=== PATIENT | male | born 1930 | race Caucasian/White ===

== ENCOUNTER → 2016-08-31 | Outpatient (CLI) | payer MEDICARE ==
[2016-08-31 13:12] LABS: HEMATOCRIT 39.1 % (37.9-51.0); HGB HCT DIFFERENCE -0.1; MEAN CORPUSCULAR HEMOGLOBIN 28.3 pg (27.0-33.4); MEAN CORPUSCULAR HGB CONC 33.3 g/dL (32.0-36.0); MEAN CORPUSCULAR VOLUME 85 fl (80-97)
[2016-08-31 13:25] LABS: ANION GAP 12 (5-19); BLOOD UREA NITROGEN 36 mg/dL (7-20); CALCIUM 10.3 mg/dL (8.4-10.2); CARBON DIOXIDE 24 mmol/L (22-30); CHLORIDE 105 mmol/L (98-107); CREATININE RESULT 1.75 mg/dL (0.52-1.25); GLUCOSE 78 mg/dL (75-110); POTASSIUM 4.7 mmol/L (3.6-5.0); SODIUM 141.4 mmol/L (137-145)
== END ==
LOC: OD 11:39
PROVIDERS: ATTEND Internal Medicine Cardiovascular Disease
DX: Z79.899 Other long term (current) drug therapy (principal); R06.02 Shortness of breath
CPT/HCPCS: 36415; 80048; 83735; 83880; 85027

== ENCOUNTER → 2016-09-09 | Outpatient (CLI) | payer MEDICARE ==
[2016-09-09 12:28] LABS: ABSOLUTE EOSINOPHILS # (AUTO) 0.3 10^3/uL (0.0-0.6); ABSOLUTE MONOCYTES (AUTO) 0.7 10^3/uL (0.1-1.4); ABSOLUTE NEUT (AUTO) 4.3 10^3/uL (1.7-8.2); BASOPHILS % (AUTO) 0.2 % (0-2); EOSINOPHILS % (AUTO) 3.5 % (0-6); HEMATOCRIT 36.9 % (37.9-51.0); HEMOGLOBIN 12.6 g/dL (13.5-17.0); HGB HCT DIFFERENCE 0.9; LYMPHOCYTES % (AUTO) 27.5 % (13-45); MEAN CORPUSCULAR HEMOGLOBIN 28.9 pg (27.0-33.4); MEAN CORPUSCULAR HGB CONC 34.1 g/dL (32.0-36.0); MEAN CORPUSCULAR VOLUME 85 fl (80-97); MONOCYTES % (AUTO) 9.5 % (3-13); RED BLOOD COUNT 4.35 10^6/uL (4.35-5.55); RED CELL DISTRIBUTION WIDTH 16.4 % (11.5-14.0); SEGMENTED NEUTROPHILS % (AUTO) 59.3 % (42-78); WHITE BLOOD COUNT 7.3 10^3/uL (4.0-10.5)
[2016-09-09 12:55] LABS: ANION GAP 14 (5-19); BLOOD UREA NITROGEN 34 mg/dL (7-20); CALCIUM 9.9 mg/dL (8.4-10.2); CARBON DIOXIDE 22 mmol/L (22-30); CHLORIDE 104 mmol/L (98-107); CREATININE RESULT 1.89 mg/dL (0.52-1.25); GLUCOSE 77 mg/dL (75-110); POTASSIUM 4.8 mmol/L (3.6-5.0); SODIUM 140.2 mmol/L (137-145)
[2016-09-09 14:08] LABS: APPEARANCE,URINE CLEAR; BILIRUBIN,URINE NEGATIVE (NEGATIVE); GLUCOSE, URINE NEGATIVE (NEGATIVE); KETONES,URINE NEGATIVE (NEGATIVE); LEUKOCYTE ESTERASE,URINE NEGATIVE (NEGATIVE); NITRITE,URINE NEGATIVE (NEGATIVE); PROTEIN,URINE 30 mg/dL (NEGATIVE); URINE SPECIFIC GRAVITY 1.014; UROBILINOGEN,URINE NEGATIVE mg/dL (<2.0)
[2016-09-10 11:40] LABS: CREATININE URINE 152.4 mg/dL (Not Estab.); MICROALBUMIN URINE 99.4 ug/mL (Not Estab.)
== END ==
LOC: OD 11:16
PROVIDERS: ATTEND Internal Medicine Nephrology
DX: N18.3 Chronic kidney disease, stage 3 (moderate) (principal); D63.1 Anemia in chronic kidney disease
CPT/HCPCS: 36415; 80048; 81001; 82043; 82306; 82570; 85025

== ENCOUNTER → 2016-10-20 | Outpatient (CLI) | payer MEDICARE ==
[2016-10-20 14:44] LABS: ANION GAP 12 (5-19); BLOOD UREA NITROGEN 55 mg/dL (7-20); CALCIUM 11.3 mg/dL (8.4-10.2); CARBON DIOXIDE 19 mmol/L (22-30); CHLORIDE 107 mmol/L (98-107); CREATININE RESULT 2.18 mg/dL (0.52-1.25); GLUCOSE 74 mg/dL (75-110); POTASSIUM 5.5 mmol/L (3.6-5.0); SODIUM 137.8 mmol/L (137-145)
== END ==
LOC: OD 12:57
PROVIDERS: ATTEND Internal Medicine Cardiovascular Disease
DX: R06.02 Shortness of breath (principal); E87.5 Hyperkalemia
CPT/HCPCS: 36415; 80048; 83880

== ENCOUNTER → 2016-11-08 | Outpatient (CLI) | payer MEDICARE ==
[2016-11-08 17:05] LABS: ANION GAP 14 (5-19); BLOOD UREA NITROGEN 33 mg/dL (7-20); CALCIUM 10.5 mg/dL (8.4-10.2); CARBON DIOXIDE 25 mmol/L (22-30); CHLORIDE 101 mmol/L (98-107); CREATININE RESULT 2.03 mg/dL (0.52-1.25); GLUCOSE 78 mg/dL (75-110); POTASSIUM 4.7 mmol/L (3.6-5.0); SODIUM 140.1 mmol/L (137-145)
== END ==
LOC: OD 14:21
PROVIDERS: ATTEND Internal Medicine Cardiovascular Disease
DX: E78.5 Hyperlipidemia, unspecified (principal)
CPT/HCPCS: 36415; 80048

== ENCOUNTER 2016-12-10 11:46 | Emergency (ER) | payer MEDICARE ==
--- NOTE | 2016-12-10 12:25 | ER Document Report ---
ED Medical Screen (RME) - General Chief Complaint: Breathing Difficulty Stated Complaint: EDEMA ON FEET/ANKLES,SHORT OF BREATH Notes: Patient presents with 3 weeks of progressively worsening shortness of breath and a 7 pound weight gain in the setting of known systolic heart failure. He does also have a history of COPD. He currently takes furosemide 20 mg daily and has not had any dosing adjustment due to a concern of his history of chronic kidney disease stage III. He was instructed to come to the emergency department today by his primary care physician. Denies any shortness of breath the time my assessment states however when he gets up and performs any degree of exertion he becomes extremely short of breath more rapidly than normal. He states this has been getting progressively worse for at least the past 2-3 months. He denies any chest pain, vomiting, or syncope. I have greeted and performed a rapid initial assessment of this patient. A comprehensive ED assessment and evaluation of the patient, analysis of test results and completion of medical decision making process will be conducted by an additional ED providers. TRAVEL OUTSIDE OF THE [place] IN LAST 30 DAYS: No - Related Data Allergies/Adverse Reactions: clindamycin [Clindamycin] Allergy (Severe, Verified 05/28/16 13:24) Renal failure gentamicin [Gentamicin] Allergy (Severe, Verified 05/28/16 13:24) Renal failure fluticasone propionate [From Advair Diskus] Allergy (Verified 05/28/16 13:24) salmeterol xinafoate [From Advair Diskus] Allergy (Verified 05/28/16 13:24) Past Medical History - Social History Chew tobacco use (# tins/day): No Frequency of alcohol use: None Drug Abuse: None - Past Medical History Cardiac Medical History: Reports: Hx Atrial Fibrillation, Hx Congestive Heart Failure, Hx Coronary Artery Disease, Hx Heart Attack, Hx Hypercholesterolemia, Hx Hypertension, Hx Heart Murmur - Moderate aortic stenosis Pulmonary Medical History: Reports: Hx COPD, Hx Pneumonia Denies: Hx Asthma, Hx Tuberculosis Neurological Medical History: Reports: Hx Cerebrovascular Accident. Denies: Hx Seizures Endocrine Medical History: Reports: Hx Hypothyroidism Renal/ Medical History: Reports: Hx End Stage Renal Disease - III. Denies: Hx Peritoneal Dialysis GI Medical History: Reports: Hx Diverticulitis. Denies: Hx Hepatitis, Hx Hiatal Hernia, Hx Ulcer Psychiatric Medical History: Denies: Hx Depression Infectious Medical History: Denies: Hx Hepatitis Past Surgical History: Reports: Hx Bowel Surgery - colonoscopy 02/19; Colon resection in 1988 due to diverticulosis, Hx Cardiac Catheterization, Hx Cardiac Surgery - Double bypass, Hx Coronary Artery Bypass Graft, Hx Open Heart Surgery - CABGX2, Hx Testicular Surgery - left testicle orchiectomy., Hx Tonsillectomy. Denies: Hx Pacemaker - Immunizations Hx Diphtheria, Pertussis, Tetanus Vaccination: Yes Physical Exam - Vital signs Vitals: Temp Pulse Resp BP Pulse Ox 97.3 F 60 20 104/49 L 95 12/10/16 12:02 12/10/16 12:02 12/10/16 12:12/10/16 12:02 12/10/16 12:02 Interpretation: Normal Notes: PHYSICAL EXAMINATION: GENERAL: Well-appearing, well-nourished and in no acute distress. Resting calmly in a wheelchair HEAD: Atraumatic, normocephalic. EYES: Pupils equal round and reactive to light, extraocular movements intact, sclera anicteric, conjunctiva are normal. ENT: nares patent, oropharynx clear without exudates. Moist mucous membranes. NECK: Normal range of motion, supple without lymphadenopathy LUNGS: Breath sounds clear to auscultation bilaterally and equal. Faint crackles at the bilateral bases worse on the right HEART: Regular rate and rhythm without murmurs ABDOMEN: Soft, nontender, normoactive bowel sounds. No guarding, no rebound. No masses appreciated. EXTREMITIES: Normal range of motion, 1+ pitting edema in the bilateral lower extremity is that is equal and symmetric NEUROLOGICAL: No focal neurological deficits. Moves all extremities spontaneously and on command. PSYCH: Normal mood, normal affect. SKIN: Warm, Dry, normal turgor, changes consistent with chronic venous stasis in the bilateral lower extremities Course - Vital Signs Vital signs: Temp Pulse Resp BP Pulse Ox 97.3 F 60 19 104/49 L 95 12/10/16 12:02 12/10/16 12:02 12/10/16 12:12 12/10/16 12:02 12/10/16 12:02
[2016-12-10 13:19] LABS: ABSOLUTE EOSINOPHILS # (AUTO) 0.3 10^3/uL (0.0-0.6); ABSOLUTE LYMPHOCYTES (AUTO) 1.3 10^3/uL (0.5-4.7); ABSOLUTE MONOCYTES (AUTO) 0.5 10^3/uL (0.1-1.4); ABSOLUTE NEUT (AUTO) 3.7 10^3/uL (1.7-8.2); BASOPHILS % (AUTO) 0.4 % (0-2); EOSINOPHILS % (AUTO) 4.3 % (0-6); HEMATOCRIT 38.6 % (37.9-51.0); HEMOGLOBIN 12.4 g/dL (13.5-17.0); HGB HCT DIFFERENCE -1.4; LYMPHOCYTES % (AUTO) 22.8 % (13-45); MEAN CORPUSCULAR HEMOGLOBIN 28.3 pg (27.0-33.4); MEAN CORPUSCULAR HGB CONC 32.1 g/dL (32.0-36.0); MEAN CORPUSCULAR VOLUME 88 fl (80-97); MONOCYTES % (AUTO) 9.4 % (3-13); RED BLOOD COUNT 4.37 10^6/uL (4.35-5.55); RED CELL DISTRIBUTION WIDTH 15.7 % (11.5-14.0); SEGMENTED NEUTROPHILS % (AUTO) 63.1 % (42-78); WHITE BLOOD COUNT 5.8 10^3/uL (4.0-10.5)
[2016-12-10 13:36] LABS: ANION GAP 16 (5-19); BLOOD UREA NITROGEN 48 mg/dL (7-20); CARBON DIOXIDE 20 mmol/L (22-30); CHLORIDE 106 mmol/L (98-107); GLUCOSE 89 mg/dL (75-110); POTASSIUM 4.8 mmol/L (3.6-5.0); SODIUM 142.3 mmol/L (137-145)
--- NOTE | 2016-12-10 13:40 | ER Document Report ---
ED General - General Mode of Arrival: Ambulatory Information source: Patient TRAVEL OUTSIDE OF THE [place] IN LAST 30 DAYS: No - HPI Patient complains to provider of: Shortness of Breath with Exertion Onset: Other - 3 weeks ago Onset/Duration: Gradual, Worse Associated symptoms: Leg swelling, Shortness of breath, Weakness, Other - Weight gain <ANNA HORTA - Last Filed: 12/10/16 14:00> <JANI RICHEY - Last Filed: 12/10/16 16:27> <KATHLEEN VARGAS - Last Filed: 12/10/16 17:23> - General Chief Complaint: Breathing Difficulty Stated Complaint: EDEMA ON FEET/ANKLES,SHORT OF BREATH Notes: Patient is an 86-year-old male, with significant medical history including systolic heart failure and COPD, presenting to the emergency department concerned of progressively worsening shortness of breath with any exertion over the past 3 weeks. Patient also states that he has gained 7 pounds and is experiencing edema in his lower extremities. Patient states that he feels completely fine when he is laying down, but upon any exertion he becomes totally exhausted. Patient was admitted to the hospital last year for his congestive heart failure, and states that his extremities were swollen at that time too. Upon discharge last year from the hospital, patient was on 40 mg of Lasix daily, but that has since been decreased down to 20 mg secondary to his renal disease. Patient's daughter states that she cannot remember when the dose was decreased, but she knows it was done by Dr. Avalos, patient's primary care physician. Patient's daughter states that the patient is not on any special diet, no sodium restriction. (ANNA HORTA) - Related Data Allergies/Adverse Reactions: clindamycin [Clindamycin] Allergy (Severe, Verified 05/28/16 13:24) Renal failure gentamicin [Gentamicin] Allergy (Severe, Verified 05/28/16 13:24) Renal failure fluticasone propionate [From Advair Diskus] Allergy (Verified 05/28/16 13:24) salmeterol xinafoate [From Advair Diskus] Allergy (Verified 05/28/16 13:24) Past Medical History - General Information source: Patient, Relative - Daughter - Social History Smoking Status: Former Smoker Chew tobacco use (# tins/day): No Frequency of alcohol use: None Drug Abuse: None Family History: Reviewed & Not Pertinent Patient has suicidal ideation: No Patient has homicidal ideation: No - Past Medical History Cardiac Medical History: Reports: Hx Atrial Fibrillation, Hx Congestive Heart Failure - Systolic, Hx Coronary Artery Disease, Hx Heart Attack, Hx Hypercholesterolemia, Hx Hypertension, Hx Heart Murmur - Moderate aortic stenosis Pulmonary Medical History: Reports: Hx COPD, Hx Pneumonia Neurological Medical History: Reports: Hx Cerebrovascular Accident Endocrine Medical History: Reports: Hx Hypothyroidism Renal/ Medical History: Reports: Hx End Stage Renal Disease - III GI Medical History: Reports: Hx Diverticulitis Past Surgical History: Reports: Hx Bowel Surgery - colonoscopy 02/19; Colon resection in 1988 due to diverticulosis, Hx Cardiac Catheterization, Hx Cardiac Surgery - Double bypass, Hx Coronary Artery Bypass Graft, Hx Open Heart Surgery - CABGX2, Hx Testicular Surgery - left testicle orchiectomy., Hx Tonsillectomy - Immunizations Hx Diphtheria, Pertussis, Tetanus Vaccination: Yes Hx Pneumococcal Vaccination: 08/08/07 <ANNA HORTA - Last Filed: 12/10/16 14:00> Review of Systems - Review of Systems Constitutional: See HPI, Weakness EENT: No symptoms reported Cardiovascular: No symptoms reported Respiratory: See HPI, Short of breath - with any exertion Gastrointestinal: No symptoms reported Genitourinary: No symptoms reported Male Genitourinary: No symptoms reported Musculoskeletal: See HPI, Leg swelling, Ankle swelling Skin: No symptoms reported Hematologic/Lymphatic: No symptoms reported Neurological/Psychological: No symptoms reported <ANNA HORTA - Last Filed: 12/10/16 14:00> Physical Exam - General General appearance: Alert - HEENT Head: Normocephalic, Atraumatic Eyes: Normal Pupils: PERRL - Respiratory Respiratory status: No respiratory distress Chest status: Nontender Breath sounds: Rales Chest palpation: Normal - Cardiovascular Rhythm: Regular Heart sounds: Normal auscultation Murmur: No - Abdominal Inspection: Normal - Soft Distension: No distension Bowel sounds: Normal Tenderness: Nontender - Back Back: Normal, Nontender - Extremities General upper extremity: Normal inspection, Nontender General lower extremity: Other - Pitting edema bilaterally - Neurological Neuro grossly intact: Yes Cognition: Normal Orientation: AAOx4 False [place] Coma Scale Eye Opening: Spontaneous [place] Coma Scale Verbal: Oriented [place] Coma Scale Motor: Obeys Commands False Pass Coma Scale Total: 15 Speech: Normal - Psychological Associated symptoms: Normal affect, Normal mood - Skin Skin Temperature: Warm Skin Moisture: Dry Skin Color: Normal <ANNA HORTA - Last Filed: 12/10/16 14:00> Course - Laboratory Result Diagrams: 12/10/16 12:45 12/10/16 12:45 <ANNA HOTRA - Last Filed: 12/10/16 14:00> - Laboratory Result Diagrams: 12/10/16 12:45 12/10/16 12:45 - Diagnostic Test Radiology reviewed: Image reviewed, Reports reviewed - CXR--Stable mild-to- moderate cardiomegaly without failure - EKG Interpretation by [place] EKG shows normal: Lindsay, Intervals, ST-T Waves. abnormal: QRS Complexes Rate: Normal - 51 Rhythm: A.Fib Lindsay/QRS: RBBB When compared to previous EKG there are: No significant change - Transfer of Care Care transferred to following provider: Dr. Vargas <JANI RICHEY - Last Filed: 12/10/16 16:27> - Laboratory Result Diagrams: 12/10/16 12:45 12/10/16 12:45 <KATHLEEN VARGAS - Last Filed: 12/10/16 17:23> - Re-evaluation Re-evalutation: 12/10/16 16:27 Patient's case was discussed with Dr. De Santiago and Dr. Carroll. Dr. Carroll recommended giving 40 of Lasix now and increasing his daily dose to 40 daily, and following up in the office next week. I added a d-dimer due to the patient's dyspnea, edema, headache clear chest x- ray. The d-dimer came back elevated at 1.79, so a VQ scan was ordered. (JANI RICHEY) 12/10/16 17:21 Care of this patient was transferred to ne by Dr. Goodrich at the end of his shift. Reevaluation at 1720 hrs. reveals patient to be in no distress, subjectively unchanged. Ventilation/perfusion scan of the chest was read as no evidence for embolic disease. Accordingly, patient will be discharged from ED to follow-up with Dr. Mcdonnell as outpatient. Scan results, as well as discharge plans were discussed with patient and family. (KATHLEEN VARGAS) - Vital Signs Vital signs: Temp Pulse Resp BP Pulse Ox 97.3 F 60 13 113/68 92 12/10/16 12:02 12/10/16 12:02 12/10/16 14:01 12/10/16 14:01 12/10/16 14:01 - Laboratory Laboratory results interpreted by me: 12/10/16 12/10/16 12/10/16 12:45 12:45 12:45 Hgb 12.4 L RDW 15.7 H Plt Count 107 L D-Dimer Carbon Dioxide 20 L BUN 48 H Creatinine 2.40 H Est GFR ( Amer) 31 L Est GFR (Non-Af Amer) 26 L Creatine Kinase NT-Pro-B Natriuret Pep 2390 H 12/10/16 12/10/16 12:45 12:45 Hgb RDW Plt Count D-Dimer 1.79 H Carbon Dioxide BUN Creatinine Est GFR ( Amer) Est GFR (Non-Af Amer) Creatine Kinase 41 L NT-Pro-B Natriuret Pep - Transfer of Care Notes: 12/10/16 16:29 Disposition pending VQ study results. If negative, then increase Lasix to 40 mg daily, elevate the feet and follow-up with Dr. Carroll next week. (JANI RICHEY) Discharge <ANNA HORTA - Last Filed: 12/10/16 14:00> <JANI RICHEY - Last Filed: 12/10/16 16:27> <KATHLEEN VARGAS - Last Filed: 12/10/16 17:23> - Discharge Clinical Impression: Dyspnea on exertion, Peripheral edema, Renal insufficiency, Pulmonary hypertension Aortic stenosis Qualifiers: Cardiac valve disease etiology: etiology unspecified Qualified Code(s): I35.0 - Nonrheumatic aortic (valve) stenosis Referrals: AZUL PAREDES MD [Primary Care Provider] - Follow up as needed Scribe Attestation: 12/10/16 16:31 I personally performed the services described in the documentation, reviewed and edited the documentation which was dictated to the scribe in my presence, and it accurately records my words and actions. (JANI RICHEY) Scribe Documentation - Scribe Written by Scribe:: Anna Horta 12/10/2016 [id number] acting as scribe for :: Pilo <ANNA HORTA - Last Filed: 12/10/16 14:00>
[2016-12-10 13:50] LABS: TROPONIN I < 0.012 ng/mL
[2016-12-10 14:24] LABS: ADD ON TESTING BLD IN LAB ACKNOWLEDGE
[2016-12-10 14:26] VITALS: BP 113/68
[2016-12-10 14:47] LABS: CREATINE KINASE 41 U/L (55-170)
[2016-12-10] MEDS ORDERED: FUROSEMIDE INJ/PF 40 MG/4 ML SDV IV ONE (14:47)
--- NOTE | 2016-12-10 19:06 | EKG REPORT ---
SEVERITY:- ABNORMAL ECG - ATRIAL FIBRILLATION INCOMPLETE RIGHT BUNDLE BRANCH BLOCK : Confirmed by: Rodrigue De Santiago MD 10-Dec-2016 19:06:13
== END 2016-12-10 19:26 | disposition home or self-care (01) ==
LOC: ER 11:46
DX: R06.00 Dyspnea, unspecified (principal); R60.9 Edema, unspecified; N28.9 Disorder of kidney and ureter, unspecified; I27.2 Other secondary pulmonary hypertension; I35.0 Nonrheumatic aortic (valve) stenosis; R51 Headache; R63.5 Abnormal weight gain; I48.91 Unspecified atrial fibrillation; I25.10 Atherosclerotic heart disease of native coronary artery without angina pectoris; I25.2 Old myocardial infarction; E78.00 Pure hypercholesterolemia, unspecified; J44.9 Chronic obstructive pulmonary disease, unspecified; Z88.3 Allergy status to other anti-infective agents; Z87.891 Personal history of nicotine dependence; Z86.73 Personal history of transient ischemic attack (TIA), and cerebral infarction without residual deficits; Z95.1 Presence of aortocoronary bypass graft
CPT/HCPCS: 93005; 99285; 96374; 36415; 82550; 85025; 80048; 84484; 85379; 83880; 71010; 78582; 93010; A9540; A9567; J1940; Q9969

== ENCOUNTER → 2016-12-14 | Outpatient (CLI) | payer MEDICARE ==
[2016-12-14 11:39] LABS: ANION GAP 16 (5-19); BLOOD UREA NITROGEN 61 mg/dL (7-20); CARBON DIOXIDE 20 mmol/L (22-30); CHLORIDE 106 mmol/L (98-107); CREATININE RESULT 3.04 mg/dL (0.52-1.25); GLUCOSE 84 mg/dL (75-110); POTASSIUM 4.8 mmol/L (3.6-5.0); SODIUM 141.8 mmol/L (137-145)
== END ==
LOC: OD 10:13
PROVIDERS: ATTEND Internal Medicine Cardiovascular Disease
DX: R06.02 Shortness of breath (principal); K92.2 Gastrointestinal hemorrhage, unspecified; Z79.899 Other long term (current) drug therapy
CPT/HCPCS: 36415; 80048; 82272; 83880

== ENCOUNTER → 2016-12-20 | Outpatient (CLI) | payer MEDICARE ==
[2016-12-20 17:01] LABS: ANION GAP 13 (5-19); BLOOD UREA NITROGEN 46 mg/dL (7-20); CALCIUM 9.8 mg/dL (8.4-10.2); CARBON DIOXIDE 25 mmol/L (22-30); CHLORIDE 103 mmol/L (98-107); CREATININE RESULT 2.26 mg/dL (0.52-1.25); GLUCOSE 97 mg/dL (75-110); POTASSIUM 5.1 mmol/L (3.6-5.0); SODIUM 140.7 mmol/L (137-145)
[2016-12-20 17:16] LABS: URINE PROTEIN 11.1 mg/dL (<12)
== END ==
LOC: OD 15:17
PROVIDERS: ATTEND Internal Medicine Nephrology
DX: N18.3 Chronic kidney disease, stage 3 (moderate) (principal); R80.1 Persistent proteinuria, unspecified
CPT/HCPCS: 36415; 80048; 82570; 84156

== ENCOUNTER → 2017-01-12 | Outpatient (CLI) | payer MEDICARE ==
[2017-01-12 12:51] LABS: ANION GAP 14 (5-19); BLOOD UREA NITROGEN 44 mg/dL (7-20); CALCIUM 10.6 mg/dL (8.4-10.2); CARBON DIOXIDE 25 mmol/L (22-30); CHLORIDE 101 mmol/L (98-107); CREATININE RESULT 2.34 mg/dL (0.52-1.25); GLUCOSE 84 mg/dL (75-110); POTASSIUM 4.5 mmol/L (3.6-5.0); SODIUM 139.9 mmol/L (137-145)
[2017-01-14 11:40] LABS: MICROALBUMIN URINE 59.5 ug/mL (Not Estab.)
== END ==
LOC: OD 11:26
PROVIDERS: ATTEND Internal Medicine Nephrology
DX: N18.3 Chronic kidney disease, stage 3 (moderate) (principal); R80.1 Persistent proteinuria, unspecified
CPT/HCPCS: 36415; 80048; 82043; 82570

== ENCOUNTER → 2017-01-26 | Outpatient (CLI) | payer MEDICARE ==
[2017-01-26 16:28] LABS: ANION GAP 15 (5-19); BLOOD UREA NITROGEN 51 mg/dL (7-20); CALCIUM 10.4 mg/dL (8.4-10.2); CARBON DIOXIDE 24 mmol/L (22-30); CHLORIDE 102 mmol/L (98-107); CREATININE RESULT 2.34 mg/dL (0.52-1.25); GLUCOSE 92 mg/dL (75-110); POTASSIUM 4.6 mmol/L (3.6-5.0); SODIUM 140.8 mmol/L (137-145)
== END ==
LOC: OD 15:17
PROVIDERS: ATTEND Internal Medicine Cardiovascular Disease
DX: N18.4 Chronic kidney disease, stage 4 (severe) (principal); R06.02 Shortness of breath
CPT/HCPCS: 36415; 80048; 83880

== ENCOUNTER → 2017-03-17 | Outpatient (CLI) | payer MEDICARE ==
[2017-03-17 17:12] LABS: ANION GAP 12 (5-19); BLOOD UREA NITROGEN 35 mg/dL (7-20); CALCIUM 9.4 mg/dL (8.4-10.2); CARBON DIOXIDE 21 mmol/L (22-30); CHLORIDE 107 mmol/L (98-107); CREATININE RESULT 1.58 mg/dL (0.52-1.25); GLUCOSE 96 mg/dL (75-110); POTASSIUM 4.7 mmol/L (3.6-5.0); SODIUM 140.4 mmol/L (137-145)
== END ==
LOC: OD 15:14
PROVIDERS: ATTEND Internal Medicine
DX: N28.9 Disorder of kidney and ureter, unspecified (principal)
CPT/HCPCS: 36415; 80048

== ENCOUNTER → 2017-07-25 | Outpatient (CLI) | payer MEDICARE ==
--- NOTE | 2017-07-25 15:19 | RADIOLOGY REPORT (SQ) ---
EXAM DESCRIPTION: BARIUM SWALLOW ESOPHAGUS COMPLETED DATE/TIME: 07/25/2017 9:20 am REASON FOR STUDY: OBSTRUCTION K22.2 ESOPHAGEAL OBSTRUCTION COMPARISON: Chest films 12/10/2016, 05/28/2016 TECHNIQUE: Under fluoroscopic guidance, patient ingested effervescent granules followed by thick and thin barium. Fluoroscopic spot images and routine radiographic images acquired and stored on PACS. 12 MM BARIUM TABLET GIVEN: Yes. No significant delay in passage. LIMITATIONS: None. FLUOROSCOPY TIME: FLUORO TIME: 1.2 minutes 7 series of digital images saved to PACS. FINDINGS: NEUROMUSCULAR COORDINATION OF SWALLOW: Normal. No aspiration. ESOPHAGEAL MOTILITY: There are tertiary contractions throughout the study. ESOPHAGEAL MUCOSA: Normal mucosa without masses or ulceration. GASTRO-ESOPHAGEAL JUNCTION: Small hiatal hernia without Schatzki's ring. Smooth distal esophageal st ricture without mucosal irregularity on today's study. 12 mm barium tablet passed without difficulty . Unprovoked gastroesophageal reflux to the mid 3rd of the esophagus. NON-GI TRACT STRUCTURES: Aortic valve, sternotomy with CABG. Left ventricular assist device at the b ottom edge of the field of view OTHER: No other significant finding. IMPRESSION: Tertiary contractions of the esophagus Small hiatal hernia with gastroesophageal reflux. Long segment distal esophageal peptic stricture wi thout tight narrowing, patient swallowed a 12 mm barium tablet without difficulty COMMENT: Quality ID 145: Final reports for procedures using fluoroscopy that document radiation exp osure indices, or exposure time and number of fluorographic images (if radiation exposure indices are not available) TECHNICAL DOCUMENTATION: JOB ID: [id number] [employer]- All Rights Reserved
== END ==
LOC: RAD 08:34
PROVIDERS: ATTEND Family Medicine
DX: K22.2 Esophageal obstruction (principal)
CPT/HCPCS: 74220

== ENCOUNTER → 2017-08-17 | Outpatient (CLI) | payer MEDICARE ==
[2017-08-17 12:56] LABS: ABSOLUTE EOSINOPHILS # (AUTO) 0.2 10^3/uL (0.0-0.6); ABSOLUTE LYMPHOCYTES (AUTO) 1.4 10^3/uL (0.5-4.7); ABSOLUTE MONOCYTES (AUTO) 0.7 10^3/uL (0.1-1.4); ABSOLUTE NEUT (AUTO) 4.5 10^3/uL (1.7-8.2); BASOPHILS % (AUTO) 0.3 % (0-2); EOSINOPHILS % (AUTO) 2.5 % (0-6); HEMATOCRIT 42.7 % (37.9-51.0); HEMOGLOBIN 14.1 g/dL (13.5-17.0); LYMPHOCYTES % (AUTO) 20.4 % (13-45); MEAN CORPUSCULAR HEMOGLOBIN 27.8 pg (27.0-33.4); MEAN CORPUSCULAR HGB CONC 32.9 g/dL (32.0-36.0); MEAN CORPUSCULAR VOLUME 84 fl (80-97); MONOCYTES % (AUTO) 9.9 % (3-13); RED BLOOD COUNT 5.07 10^6/uL (4.35-5.55); RED CELL DISTRIBUTION WIDTH 17.3 % (11.5-14.0); SEGMENTED NEUTROPHILS % (AUTO) 66.9 % (42-78); TOTAL CELLS COUNTED % (AUTO) 100 %; WHITE BLOOD COUNT 6.7 10^3/uL (4.0-10.5)
[2017-08-17 13:16] LABS: ANION GAP 14 (5-19); BLOOD UREA NITROGEN 31 mg/dL (7-20); CALCIUM 10.6 mg/dL (8.4-10.2); CARBON DIOXIDE 26 mmol/L (22-30); CHLORIDE 101 mmol/L (98-107); GLUCOSE 82 mg/dL (75-110); POTASSIUM 3.9 mmol/L (3.6-5.0); SODIUM 140.7 mmol/L (137-145)
[2017-08-17 13:22] LABS: OVALOCYTES 2+; PLATELET COMMENT DECREASED; PLATELET COUNT 96 10^3/uL (150-450); POIKILOCYTOSIS 2+
[2017-08-20 11:21] LABS: URINE CREATININE 101.4 mg/dL (22-328)
[2017-08-20 11:32] LABS: UR PRO/CREAT RATIO RESULT 0.3 mg/mg (0.0-0.2); URINE PROTEIN 26.3 mg/dL (<12)
== END ==
LOC: OD 12:09
PROVIDERS: ATTEND Internal Medicine Nephrology
DX: N18.3 Chronic kidney disease, stage 3 (moderate) (principal); D63.1 Anemia in chronic kidney disease; E55.9 Vitamin D deficiency, unspecified
CPT/HCPCS: 36415; 80048; 82306; 82570; 84156; 85025

== ENCOUNTER → 2017-12-15 | Outpatient (CLI) | payer MEDICARE ==
[2017-12-15 14:13] LABS: ANION GAP 17 (5-19); BLOOD UREA NITROGEN 35 mg/dL (7-20); CALCIUM 9.6 mg/dL (8.4-10.2); CARBON DIOXIDE 25 mmol/L (22-30); CHLORIDE 102 mmol/L (98-107); GLUCOSE 81 mg/dL (75-110); POTASSIUM 4.3 mmol/L (3.6-5.0); SODIUM 143.9 mmol/L (137-145)
[2017-12-15 14:53] LABS: UR PRO/CREAT RATIO RESULT 0.2 mg/mg (0.0-0.2); URINE CREATININE 176.2 mg/dL (22-328); URINE PROTEIN 39.8 mg/dL (<12)
== END ==
LOC: OD 12:30
PROVIDERS: ATTEND Internal Medicine Nephrology
DX: N18.3 Chronic kidney disease, stage 3 (moderate) (principal); E55.9 Vitamin D deficiency, unspecified; R80.9 Proteinuria, unspecified
CPT/HCPCS: 36415; 80048; 82306; 82570; 84156

== ENCOUNTER → 2018-06-05 | Outpatient (CLI) | payer MEDICARE ==
[2018-06-05 12:44] LABS: ABSOLUTE EOSINOPHILS # (AUTO) 0.2 10^3/uL (0.0-0.6); ABSOLUTE LYMPHOCYTES (AUTO) 1.4 10^3/uL (0.5-4.7); ABSOLUTE MONOCYTES (AUTO) 0.5 10^3/uL (0.1-1.4); ABSOLUTE NEUT (AUTO) 4.6 10^3/uL (1.7-8.2); BASOPHILS % (AUTO) 0.3 % (0-2); EOSINOPHILS % (AUTO) 3.5 % (0-6); HEMATOCRIT 41.9 % (37.9-51.0); HEMOGLOBIN 14.4 g/dL (13.5-17.0); LYMPHOCYTES % (AUTO) 21.3 % (13-45); MEAN CORPUSCULAR HEMOGLOBIN 32.7 pg (27.0-33.4); MEAN CORPUSCULAR HGB CONC 34.5 g/dL (32.0-36.0); MEAN CORPUSCULAR VOLUME 95 fl (80-97); MONOCYTES % (AUTO) 6.8 % (3-13); RED BLOOD COUNT 4.42 10^6/uL (4.35-5.55); RED CELL DISTRIBUTION WIDTH 16.1 % (11.5-14.0); SEGMENTED NEUTROPHILS % (AUTO) 68.1 % (42-78); TOTAL CELLS COUNTED % (AUTO) 100 %; WHITE BLOOD COUNT 6.7 10^3/uL (4.0-10.5)
[2018-06-05 12:50] LABS: ANION GAP 13 (5-19); BLOOD UREA NITROGEN 39 mg/dL (7-20); CALCIUM 9.7 mg/dL (8.4-10.2); CARBON DIOXIDE 25 mmol/L (22-30); CHLORIDE 102 mmol/L (98-107); GLUCOSE 91 mg/dL (75-110); PHOSPHORUS 4.1 mg/dL (2.5-4.5); POTASSIUM 4.7 mmol/L (3.6-5.0)
[2018-06-05 12:56] LABS: UR PRO/CREAT RATIO RESULT 0.3 mg/mg (0.0-0.2); URINE CREATININE 50.7 mg/dL (22-328); URINE PROTEIN 13.7 mg/dL (<12)
[2018-06-05 13:17] LABS: PLATELET COUNT 96 10^3/uL (150-450)
== END ==
LOC: OD 11:33
PROVIDERS: ATTEND Internal Medicine Nephrology
DX: I12.9 Hypertensive chronic kidney disease with stage 1 through stage 4 chronic kidney disease, or unspecified chronic kidney disease (principal); N18.3 Chronic kidney disease, stage 3 (moderate); R80.9 Proteinuria, unspecified; E55.9 Vitamin D deficiency, unspecified
CPT/HCPCS: 36415; 80048; 82040; 82570; 83970; 84100; 84156; 85025

== ENCOUNTER → 2018-07-24 | Outpatient (CLI) | payer MEDICARE ==
--- NOTE | 2018-07-24 14:11 | RADIOLOGY REPORT (SQ) ---
EXAM DESCRIPTION: CT CHEST WITHOUT COMPLETED DATE/TIME: 07/24/2018 10:48 am REASON FOR STUDY: EMPHYSEMA (J43.9) J43.9 EMPHYSEMA, UNSPECIFIED COMPARISON: Chest radiograph TECHNIQUE: CT scan performed of the chest without intravenous contrast. Images reviewed with lung, soft tissue and bone windows. Reconstructed coronal and sagittal MPR images reviewed. All images st ored on PACS. All CT scanners at this facility use dose modulation, iterative reconstruction, and/or weight based d osing when appropriate to reduce radiation dose to as low as reasonably achievable (ALARA). [facility]: Dose Right [facility]: CareDose [facility]: Dose Right [facility]: Teradose 4D [facility]: Smart Zite RADIATION DOSE: CT Rad equipment meets quality standard of care and radiation dose reduction techniq ues were employed. CTDIvol: 9.4 mGy. DLP: 372 mGy-cm. mGy. LIMITATIONS: No technical limitations. FINDINGS: LUNGS AND PLEURA: No masses, infiltrates, or pneumothorax. No pleural effusions or pleura l calcifications. Minimal linear scarring at the lung bases. HILAR AND MEDIASTINAL STRUCTURES: No identified masses or abnormal nodes. No obvious aneurysm. HEART AND VASCULAR STRUCTURES: Stent graft. Prior CABG. UPPER ABDOMEN: No significant findings. Limited exam. THYROID AND OTHER SOFT TISSUES: No masses. No adenopathy. BONES: No significant finding. HARDWARE: None in the chest. OTHER: No other significant findings. IMPRESSION: Mild scarring at the lung bases. No other significant finding. Prior cardiac surgery. TECHNICAL DOCUMENTATION: JOB ID: [id number] Quality ID # [id number]: Final reports with documentation of one or more dose reduction techniques (e.g., Au tomated exposure control, adjustment of the mA and/or kV according to patient size, use of iterative reconstruction technique) 2010 [employer]- All Rights Reserved Reading location - IP/workstation name: [email or web address]
== END ==
LOC: RAD 10:25
PROVIDERS: ATTEND Internal Medicine Pulmonary Disease
DX: J43.9 Emphysema, unspecified (principal)
CPT/HCPCS: 71250

== ENCOUNTER 2018-08-30 23:03 | Emergency (ER) | payer MEDICARE ==
--- NOTE | 2018-08-30 23:37 | ER Document Report ---
ED GI Bleed / Rectal Pain - General Stated Complaint: RECTAL BLEEDING Time Seen by Provider: 08/30/18 23:29 Primary Care Provider: MARCO A LEBRON MD [ACTIVE STAFF] - Follow up as needed Notes: Patient is an 88-year-old male that comes to the emergency department for chief complaint of rectal bleeding. He states he had 3 bowel movements with bright red blood stool mixed in with clear stool, he passed a few clots. He denies dizziness, passing out, chest pain, shortness of breath. He denies abdominal pain, vomiting, fever. Past medical history of partial colectomy because of severe diverticulitis. He did have a lower GI bleed 8 years ago, had a colonoscopy by Dr. Almaraz and had the area clipped and cauterized. He is not on a blood thinner except for aspirin. He comes by EMS, family is at bedside. Past medical history includes COPD, CHF, A. fib, hypertension, chronic kidney disease. He is full code. TRAVEL OUTSIDE OF THE [place] IN LAST 30 DAYS: No - Related Data Allergies/Adverse Reactions: clindamycin [Clindamycin] Allergy (Severe, Verified 05/28/16 13:24) Renal failure gentamicin [Gentamicin] Allergy (Severe, Verified 05/28/16 13:24) Renal failure fluticasone propionate [From Advair Diskus] Allergy (Verified 05/28/16 13:24) salmeterol xinafoate [From Advair Diskus] Allergy (Verified 05/28/16 13:24) Past Medical History - General Information source: Patient, Relative - Social History Smoking Status: Never Smoker Frequency of alcohol use: None Drug Abuse: None Lives with: Family Family History: Reviewed & Not Pertinent - Past Medical History Cardiac Medical History: Reports: Hx Atrial Fibrillation, Hx Congestive Heart Failure - Systolic, Hx Coronary Artery Disease, Hx Heart Attack, Hx Hyperch olesterolemia, Hx Hypertension, Hx Heart Murmur - Moderate aortic stenosis Pulmonary Medical History: Reports: Hx COPD, Hx Pneumonia Denies: Hx Asthma, Hx Tuberculosis Neurological Medical History: Reports: Hx Cerebrovascular Accident. Denies: Hx Seizures Endocrine Medical History: Reports: Hx Hypothyroidism Renal/ Medical History: Reports: Hx End Stage Renal Disease - III. Denies: Hx Peritoneal Dialysis GI Medical History: Reports: Hx Diverticulitis. Denies: Hx Hepatitis, Hx Hiatal Hernia, Hx Ulcer Psychiatric Medical History: Denies: Hx Depression Infectious Medical History: Denies: Hx Hepatitis Past Surgical History: Reports: Hx Bowel Surgery - colonoscopy 02/19; Colon resection in 1988 due to diverticulosis, Hx Cardiac Catheterization, Hx Cardiac Surgery - Double bypass, Hx Coronary Artery Bypass Graft, Hx Open Heart Surgery - CABGX2, Hx Testicular Surgery - left testicle orchiectomy., Hx Tonsillectomy. Denies: Hx Pacemaker - Immunizations Hx Diphtheria, Pertussis, Tetanus Vaccination: Yes Hx Pneumococcal Vaccination: 08/08/07 Review of Systems - Review of Systems Constitutional: No symptoms reported EENT: No symptoms reported Cardiovascular: No symptoms reported Respiratory: No symptoms reported Gastrointestinal: See HPI Genitourinary: No symptoms reported Male Genitourinary: No symptoms reported Musculoskeletal: No symptoms reported Skin: No symptoms reported Hematologic/Lymphatic: No symptoms reported Neurological/Psychological: No symptoms reported Physical Exam - Vital signs Vitals: Resp Pulse Ox 17 96 08/30/18 23:09 08/30/18 23:09 - Notes Notes: GENERAL: Alert, interacts well. No acute distress. HEAD: Normocephalic, atraumatic. EYES: Pupils equal, round, and reactive to light. Extraocular movements intact. ENT: Oral mucosa moist, tongue midline. Oropharynx unremarkable. Airway patent. Nares patent, no nasal septal hematoma, TM's intact. NECK: Full range of motion. Supple. Trachea midline. LUNGS: Clear to auscultation bilaterally, no wheezes, rales, or rhonchi. No respiratory distress. HEART: Regular rate and rhythm. No murmur ABDOMEN: Soft, non-tender. Non-distended. Bowel sounds present in all 4 quadrants. GENITOURINARY: No concerning findings. RECTAL: some maroon blood noted on exam; no hemorrhoid, fissure, mass, or other abnormality noted. No tenderness noted. EXTREMITIES: Moves all 4 extremities spontaneously. No edema, normal radial and dorsalis pedis pulses bilaterally. No cyanosis. BACK: no cervical, thoracic, lumbar midline tenderness. No saddle anesthesia, normal distal neurovascular exam. NEUROLOGICAL: Alert and oriented x3. Normal speech. [cranial nerves II through XII grossly intact]. PSYCH: Normal affect, normal mood. SKIN: Warm, dry, normal turgor. No rashes or lesions noted. Course - Re-evaluation Re-evalutation: Patient with blood on examination but no current heavy bleeding noted on rectal examination really. No hemorrhoids. No other concerning finding. Soft abdomen, well-appearing patient. CBC at 11.2. Last May was the most recent comparison hemoglobin, this was 14.4. Called and spoke with general surgeon psychologist [employer], Dr. Brooks, he is not able to perform endoscopy/colonoscopy for the patient. We do not have gastroenterology psychologist [employer]. Will need to transfer the patient for GI bleed. Discussed with patient and family. Discussed with Dr. Li. 08/31/18 01:05 Called [facility], pending call back. Patient had a large black bowel movement, he was started on Protonix. He does have an elevated BUN. We will begin preparing blood for possible transfusion if this continues. 08/31/18 01:50 Called [facility] again, they state patient has been accepted by Dr. Evans, however there is not a bed open at this time, hopefully later this morning. 08/31/18 02:[address] Strong, patient accepted for transfer. Patient will go to the location that has the beds first. 08/31/18 04:05 Patient had a very large bowel movement, probably approximately 300 cc, lots of blood in it, he is being transfused. Updated Dr. Li. Repeat CBC was missed at the time to order but this is pending now. Patient's blood pressure is in the 120 systolic. He is alert and nontoxic on evaluation. He is not tachycardic. We contacted both [facility] and [facility] and neither one of them have an available bed at this time, he will go to the first one that is available. 08/31/18 06:25 We do not have beds available at both [facility] annually in order. I called daughter, preference is [facility] at this time. Patient will be transported there. 08/31/18 07:04 Introduced to Manfred HALEY at bedside. No current complaints. Transport should be here within the hour. - Vital Signs Vital signs: Temp Pulse Resp BP Pulse Ox 98.1 F 79 26 H 120/59 L 98 08/31/18 06:05 08/31/18 02:30 08/31/18 06:46 08/31/18 06:46 08/31/18 06:46 - Laboratory Result Diagrams: 08/31/18 03:58 08/30/18 23:52 Laboratory results interpreted by me: 08/30/18 08/30/18 08/30/18 23:52 23:52 23:52 RBC 3.52 L Hgb 11.2 L Hct 33.3 L RDW 17.5 H Plt Count 85 L BUN 42 H Creatinine 2.32 H Est GFR ( Amer) 32 L Est GFR (Non-Af Amer) 27 L Glucose 114 H Total Protein 5.2 L Albumin 3.1 L Crossmatch See Detail 08/31/18 03:58 RBC 3.31 L Hgb 10.5 L Hct 31.2 L RDW 17.0 H Plt Count 81 L BUN Creatinine Est GFR ( Amer) Est GFR (Non-Af Amer) Glucose Total Protein Albumin Crossmatch Discharge - Discharge Clinical Impression: GI bleed Qualifiers: GI bleed type/associated pathology: unspecified gastrointestinal hemorrhage type Qualified Code(s): K92.2 - Gastrointestinal hemorrhage, unspecified Condition: Serious Referrals: MARCO A LEBRON MD [ACTIVE STAFF] - Follow up as needed
[2018-08-31] MEDS ORDERED: NORMAL SALINE 500 ML IV ONE (00:09)
[2018-08-31 00:14] LABS: ABSOLUTE EOSINOPHILS # (AUTO) 0.2 10^3/uL (0.0-0.6); ABSOLUTE LYMPHOCYTES (AUTO) 1.1 10^3/uL (0.5-4.7); ABSOLUTE MONOCYTES (AUTO) 0.6 10^3/uL (0.1-1.4); ABSOLUTE NEUT (AUTO) 4.6 10^3/uL (1.7-8.2); BASOPHILS % (AUTO) 0.6 % (0-2); EOSINOPHILS % (AUTO) 2.7 % (0-6); HEMATOCRIT 33.3 % (37.9-51.0); HEMOGLOBIN 11.2 g/dL (13.5-17.0); LYMPHOCYTES % (AUTO) 16.6 % (13-45); MEAN CORPUSCULAR HGB CONC 33.8 g/dL (32.0-36.0); MEAN CORPUSCULAR VOLUME 95 fl (80-97); MONOCYTES % (AUTO) 8.9 % (3-13); RED BLOOD COUNT 3.52 10^6/uL (4.35-5.55); RED CELL DISTRIBUTION WIDTH 17.5 % (11.5-14.0); SEGMENTED NEUTROPHILS % (AUTO) 71.2 % (42-78); TOTAL CELLS COUNTED % (AUTO) 100 %; WHITE BLOOD COUNT 6.4 10^3/uL (4.0-10.5)
[2018-08-31 00:20] LABS: INTERNATIONAL RATION (INR) 1.15; PROTHROMBIN TIME 15.3 SEC (11.4-15.4)
[2018-08-31 00:21] LABS: PARTIAL THROMBOPLASTIN TIME 31.2 SEC (23.5-35.8)
[2018-08-31 00:28] LABS: ALANINE AMINOTRANSFERASE 22 U/L (21-72); ALBUMIN 3.1 g/dL (3.5-5.0); ALKALINE PHOSPHATASE 90 U/L (38-126); ANION GAP 6 (5-19); ASPARTATE AMINO TRANSFERASE 20 U/L (17-59); BILIRUBIN,DIRECT 0.2 mg/dL (0.0-0.4); BILIRUBIN,TOTAL 0.5 mg/dL (0.2-1.3); BLOOD UREA NITROGEN 42 mg/dL (7-20); CALCIUM 8.6 mg/dL (8.4-10.2); CARBON DIOXIDE 27 mmol/L (22-30); CHLORIDE 105 mmol/L (98-107); GLUCOSE 114 mg/dL (75-110); POTASSIUM 4.5 mmol/L (3.6-5.0); SODIUM 137.6 mmol/L (137-145); TOTAL PROTEIN 5.2 g/dL (6.3-8.2)
[2018-08-31 00:39] LABS: PLATELET COUNT 85 10^3/uL (150-450)
[2018-08-31] MEDS ORDERED: PANTOPRAZOLE SODIUM 40 MG VIAL IV PRN (01:02)
[2018-08-31] MEDS ORDERED: PANTOPRAZOLE SODIUM 40 MG VIAL IV ONE (01:02)
[2018-08-31] MEDS ORDERED: NORMAL SALINE 250 ML IV PRN ×2 (01:10)
[2018-08-31] MEDS ORDERED: ACETAMINOPHEN 325 MG TABLET PO ONE (03:41)
[2018-08-31 04:13] LABS: HEMATOCRIT 31.2 % (37.9-51.0); HEMOGLOBIN 10.5 g/dL (13.5-17.0); MEAN CORPUSCULAR HEMOGLOBIN 31.8 pg (27.0-33.4); MEAN CORPUSCULAR HGB CONC 33.7 g/dL (32.0-36.0); MEAN CORPUSCULAR VOLUME 94 fl (80-97); RED BLOOD COUNT 3.31 10^6/uL (4.35-5.55); WHITE BLOOD COUNT 7.1 10^3/uL (4.0-10.5)
[2018-08-31 04:32] LABS: PLATELET COUNT 81 10^3/uL (150-450)
[2018-08-31 08:27] VITALS: BP 148/52
== END 2018-08-31 08:40 | disposition short-term general hospital (02) ==
LOC: ER 23:03
DX: K92.2 Gastrointestinal hemorrhage, unspecified (principal); I10 Essential (primary) hypertension; I25.10 Atherosclerotic heart disease of native coronary artery without angina pectoris; J44.9 Chronic obstructive pulmonary disease, unspecified; Z90.49 Acquired absence of other specified parts of digestive tract; Z87.19 Personal history of other diseases of the digestive system; Z79.82 Long term (current) use of aspirin; Z88.1 Allergy status to other antibiotic agents; Z88.8 Allergy status to other drugs, medicaments and biological substances; Z95.1 Presence of aortocoronary bypass graft
CPT/HCPCS: 99285; 96361; 96365; 96366; 86900; 86901; 36415; 36430; 86850; 85025; 85027; 85610; 85730; 80053; 86920; P9016; A9270; C9113; J7040; S0164

== ENCOUNTER 2018-09-04 10:47 | Emergency (ER) | payer MEDICARE ==
--- NOTE | 2018-09-04 11:42 | ER Document Report ---
ED Medical Screen (RME) - General Chief Complaint: Rib Pain Stated Complaint: FLANK PAIN Time Seen by Provider: 09/04/18 11:37 Primary Care Provider: AZUL PAREDES MD [Primary Care Provider] - Follow up as needed Notes: 88-year-old male patient reports bumping his right ribs a few days ago. He is not sure what he hit or how it happened. He is not sure when it happened. He states that his memory and brain processing is not that good any longer. He was seen here 5 days ago with rectal bleeding and was a little anemic at that time. He states there is been no bleeding since then. I have greeted and performed a rapid initial assessment of this patient. A comprehensive ED assessment and evaluation of the patient, analysis of test results and completion of the medical decision making process will be conducted by additional ED providers. TRAVEL OUTSIDE OF THE [place] IN LAST 30 DAYS: No - Related Data Allergies/Adverse Reactions: clindamycin [Clindamycin] Allergy (Severe, Verified 09/04/18 11:22) Renal failure gentamicin [Gentamicin] Allergy (Severe, Verified 09/04/18 11:22) Renal failure fluticasone propionate [From Advair Diskus] Allergy (Verified 09/04/18 11:22) salmeterol xinafoate [From Advair Diskus] Allergy (Verified 09/04/18 11:22) Past Medical History - Social History Chew tobacco use (# tins/day): No Frequency of alcohol use: None Drug Abuse: None - Past Medical History Cardiac Medical History: Reports: Hx Atrial Fibrillation, Hx Congestive Heart Failure - Systolic, Hx Coronary Artery Disease, Hx Heart Attack, Hx Hypercholesterolemia, Hx Hypertension, Hx Heart Murmur - Moderate aortic stenosis Pulmonary Medical History: Reports: Hx COPD, Hx Pneumonia Denies: Hx Asthma, Hx Tuberculosis Neurological Medical History: Reports: Hx Cerebrovascular Accident. Denies: Hx Seizures Endocrine Medical History: Reports: Hx Hypothyroidism Renal/ Medical History: Reports: Hx End Stage Renal Disease - III. Denies: Hx Peritoneal Dialysis GI Medical History: Reports: Hx Diverticulitis. Denies: Hx Hepatitis, Hx Hiatal Hernia, Hx Ulcer Psychiatric Medical History: Denies: Hx Depression Infectious Medical History: Denies: Hx Hepatitis Past Surgical History: Reports: Hx Bowel Surgery - colonoscopy 02/19; Colon resection in 1988 due to diverticulosis, Hx Cardiac Catheterization, Hx Cardiac Surgery - AV replacement, Hx Coronary Artery Bypass Graft, Hx Open Heart Surgery - CABGX2, Hx Testicular Surgery - left testicle orchiectomy., Hx Tonsillectomy. Denies: Hx Pacemaker - Immunizations Hx Diphtheria, Pertussis, Tetanus Vaccination: Yes Physical Exam - Vital signs Vitals: Temp Pulse Resp BP Pulse Ox 97.6 F 88 18 155/68 H 97 09/04/18 10:53 09/04/18 10:53 09/04/18 10:53 09/04/18 10:53 09/04/18 10:53 Course - Vital Signs Vital signs: Temp Pulse Resp BP Pulse Ox 97.6 F 88 18 155/68 H 97 09/04/18 10:53 09/04/18 10:53 09/04/18 10:53 09/04/18 10:53 09/04/18 10:53 Doctor's Discharge - Discharge Referrals: AZUL PAREDES MD [Primary Care Provider] - Follow up as needed
[2018-09-04 12:30] LABS: ABSOLUTE EOSINOPHILS # (AUTO) 0.2 10^3/uL (0.0-0.6); ABSOLUTE LYMPHOCYTES (AUTO) 0.8 10^3/uL (0.5-4.7); ABSOLUTE MONOCYTES (AUTO) 0.5 10^3/uL (0.1-1.4); ABSOLUTE NEUT (AUTO) 4.6 10^3/uL (1.7-8.2); BASOPHILS % (AUTO) 0.7 % (0-2); EOSINOPHILS % (AUTO) 2.9 % (0-6); HEMATOCRIT 34.5 % (37.9-51.0); HEMOGLOBIN 11.7 g/dL (13.5-17.0); LYMPHOCYTES % (AUTO) 13.8 % (13-45); MEAN CORPUSCULAR HEMOGLOBIN 31.5 pg (27.0-33.4); MEAN CORPUSCULAR HGB CONC 33.8 g/dL (32.0-36.0); MEAN CORPUSCULAR VOLUME 93 fl (80-97); MONOCYTES % (AUTO) 7.6 % (3-13); RED CELL DISTRIBUTION WIDTH 17.5 % (11.5-14.0); TOTAL CELLS COUNTED % (AUTO) 100 %; WHITE BLOOD COUNT 6.1 10^3/uL (4.0-10.5)
[2018-09-04 12:43] LABS: ALANINE AMINOTRANSFERASE 14 U/L (21-72); ALKALINE PHOSPHATASE 90 U/L (38-126); ANION GAP 9 (5-19); ASPARTATE AMINO TRANSFERASE 30 U/L (17-59); BILIRUBIN,DIRECT 0.3 mg/dL (0.0-0.4); BILIRUBIN,TOTAL 1.2 mg/dL (0.2-1.3); BLOOD UREA NITROGEN 23 mg/dL (7-20); CALCIUM 9.4 mg/dL (8.4-10.2); CARBON DIOXIDE 25 mmol/L (22-30); CHLORIDE 107 mmol/L (98-107); GLUCOSE 95 mg/dL (75-110); POTASSIUM 4.4 mmol/L (3.6-5.0); SODIUM 140.7 mmol/L (137-145); TOTAL PROTEIN 6.3 g/dL (6.3-8.2)
[2018-09-04 13:02] LABS: PLATELET COUNT 96 10^3/uL (150-450)
--- NOTE | 2018-09-04 13:43 | RADIOLOGY REPORT (SQ) ---
EXAM DESCRIPTION: RIBS RIGHT W/PA CHEST COMPLETED DATE/TIME: 09/04/2018 1:06 pm REASON FOR STUDY: Bumped right ribs a few days ago, continued pain COMPARISON: None. TECHNIQUE: Frontal view of the chest and additional views of the right ribs acquired. NUMBER OF VIEWS: Three view. LIMITATIONS: None. FINDINGS: FRONTAL CXR: No pneumothorax. No pleural effusion. No atelectasis or infiltrates. RIBS: Minimally displaced fracture of the anterior end of the 9th rib. No lytic or blastic bony lesi ons. OTHER: No other significant finding. IMPRESSION: MINIMALLY DISPLACED FRACTURE OF THE ANTERIOR END OF THE RIGHT 9TH RIB. COMMENT: SITE OF TRAUMA/COMPLAINT MARKED/STAMP COMPLETED: YES. TECHNICAL DOCUMENTATION: JOB ID: [id number] [employer]- All Rights Reserved Reading location - IP/workstation name: [email or web address]
--- NOTE | 2018-09-04 15:17 | ER Document Report ---
ED General - General Chief Complaint: Rib Pain Stated Complaint: FLANK PAIN Time Seen by Provider: 09/04/18 11:37 Primary Care Provider: AZUL PAREDES MD [Primary Care Provider] - Follow up as needed Mode of Arrival: Ambulatory Information source: Patient TRAVEL OUTSIDE OF THE [place] IN LAST 30 DAYS: No - HPI Patient complains to provider of: Right-sided rib pain Onset: Other - 3 days Onset/Duration: Persistent Quality of pain: Achy Severity: Moderate Pain Level: 3 Associated symptoms: None Exacerbated by: Movement, Coughing, Deep breathing Relieved by: Denies Similar symptoms previously: No Recently seen / treated by doctor: No Notes: Patient is an 88-year-old male presenting to the emergency room today complaining of right-sided rib pain that started approximately 3 days ago, he has ecchymosis in this area but is unaware of any specific injury that may have occurred, he reports a mild persistent cough which is nonproductive, denies any fevers, denies any recent falls, his daughter at bedside reports that he did have a fall around [place] time but was not complaining of pain in the specific area at the time, pain is worse when he moves a certain way, palpates the area or takes a deep breath - Related Data Allergies/Adverse Reactions: clindamycin [Clindamycin] Allergy (Severe, Verified 09/04/18 11:22) Renal failure gentamicin [Gentamicin] Allergy (Severe, Verified 09/04/18 11:22) Renal failure fluticasone propionate [From Advair Diskus] Allergy (Verified 09/04/18 11:22) salmeterol xinafoate [From Advair Diskus] Allergy (Verified 09/04/18 11:22) Past Medical History - General Information source: Patient, Relative - Social History Smoking Status: Former Smoker Chew tobacco use (# tins/day): No Frequency of alcohol use: None Drug Abuse: None Family History: Reviewed & Not Pertinent Patient has suicidal ideation: No Patient has homicidal ideation: No - Past Medical History Cardiac Medical History: Reports: Hx Atrial Fibrillation, Hx Congestive Heart Failure - Systolic, Hx Coronary Artery Disease, Hx Heart Attack, Hx Hypercholesterolemia, Hx Hypertension, Hx Heart Murmur - Moderate aortic stenosis Pulmonary Medical History: Reports: Hx COPD, Hx Pneumonia Denies: Hx Asthma, Hx Tuberculosis Neurological Medical History: Reports: Hx Cerebrovascular Accident. Denies: Hx Seizures Endocrine Medical History: Reports: Hx Hypothyroidism Renal/ Medical History: Reports: Hx End Stage Renal Disease - III. Denies: Hx Peritoneal Dialysis GI Medical History: Reports: Hx Diverticulitis. Denies: Hx Hepatitis, Hx Hiatal Hernia, Hx Ulcer Psychiatric Medical History: Denies: Hx Depression Infectious Medical History: Denies: Hx Hepatitis Past Surgical History: Reports: Hx Bowel Surgery - colonoscopy 02/19; Colon resection in 1988 due to diverticulosis, Hx Cardiac Catheterization, Hx Cardiac Surgery - AV replacement, Hx Coronary Artery Bypass Graft, Hx Open Heart Surgery - CABGX2, Hx Testicular Surgery - left testicle orchiectomy., Hx Tonsillectomy. Denies: Hx Pacemaker - Immunizations Hx Diphtheria, Pertussis, Tetanus Vaccination: Yes Hx Pneumococcal Vaccination: 08/08/07 Review of Systems - Review of Systems Constitutional: No symptoms reported EENT: No symptoms reported Cardiovascular: No symptoms reported Respiratory: See HPI Gastrointestinal: No symptoms reported Genitourinary: No symptoms reported Male Genitourinary: No symptoms reported Musculoskeletal: See HPI Skin: No symptoms reported Hematologic/Lymphatic: No symptoms reported Neurological/Psychological: No symptoms reported -: Yes All other systems reviewed and negative Physical Exam - Vital signs Vitals: Temp Pulse Resp BP Pulse Ox 97.6 F 88 18 155/68 H 97 09/04/18 10:53 09/04/18 10:53 09/04/18 10:53 09/04/18 10:53 09/04/18 10:53 Interpretation: Normal - General General appearance: Appears well, Alert - HEENT Head: Normocephalic, Atraumatic Eyes: Normal Pupils: PERRL - Respiratory Respiratory status: No respiratory distress Chest status: Tender - Purplish ecchymosis to the right lower anterior ribs with tenderness to palpate in this area, no crepitus, no palpated deformity Breath sounds: Normal, Nonproductive cough Chest palpation: Normal - Cardiovascular Rhythm: Regular Heart sounds: Normal auscultation Murmur: No - Abdominal Inspection: Normal Distension: No distension Bowel sounds: Normal Tenderness: Nontender Organomegaly: No organomegaly - Back Back: Normal, Nontender - Extremities General upper extremity: Normal inspection, Nontender, Normal color, Normal ROM, Normal temperature General lower extremity: Normal inspection, Nontender, Normal color, Normal ROM, Normal temperature, Normal weight bearing. No: Doc's sign - Neurological Neuro grossly intact: Yes Cognition: Normal Orientation: AAOx4 [place] Coma Scale Eye Opening: Spontaneous [place] Coma Scale Verbal: Oriented [place] Coma Scale Motor: Obeys Commands [place] Coma Scale Total: 15 Speech: Normal Motor strength normal: LUE, RUE, LLE, RLE Sensory: Normal - Psychological Associated symptoms: Normal affect, Normal mood - Skin Skin Temperature: Warm Skin Moisture: Dry Skin Color: Normal Course - Re-evaluation Re-evalutation: 09/04/18 15:27 Lab and imaging findings discussed with patient and family at bedside which revealed mild anemia with thrombocytopenia and CKD consistent with previous labs from previous visits, however chest x-ray today shows a slightly displaced ninth anterior rib fracture, this is consistent with physical exam findings, pain management treatment options were discussed with patient and family at bedside, on agreement was made that patient did not require narcotic pain medication secondary to his frequent fall status, and the degree of his pain at this time which seems to be relatively controlled with Tylenol alone, therefore he was advised to take Tylenol as needed, follow-up with primary care or return if any worsening symptoms, patient and family members acknowledge understanding and agreement with this plan - Vital Signs Vital signs: Temp Pulse Resp BP Pulse Ox 97.6 F 88 18 155/68 H 97 09/04/18 10:53 09/04/18 10:53 09/04/18 10:53 09/04/18 10:53 09/04/18 10:53 - Laboratory Result Diagrams: 09/04/18 12:17 09/04/18 12:17 Laboratory results interpreted by me: 09/04/18 09/04/18 12:17 12:17 RBC 3.70 L Hgb 11.7 L Hct 34.5 L RDW 17.5 H Plt Count 96 L BUN 23 H Creatinine 1.61 H Est GFR ( Amer) 49 L Est GFR (Non-Af Amer) 41 L ALT 14 L - Diagnostic Test Radiology reviewed: Image reviewed, Reports reviewed Discharge - Discharge Clinical Impression: Rib fracture Qualifiers: Encounter type: initial encounter Rib fracture type: single rib Fracture type: closed Laterality: right Qualified Code(s): S22.31XA - Fracture of one rib, right side, initial encounter for closed fracture Condition: Stable Disposition: HOME, SELF-CARE Instructions: Rib Injuries and Fractures ([facility]) Additional Instructions: Follow up with your primary care provider in one to 2 days. Return to the emerg ency room immediately if symptoms worsen or any additional concerns. Referrals: AZUL PAREDES MD [Primary Care Provider] - Follow up as needed
[2018-09-04 15:40] VITALS: BP 152/77
== END 2018-09-04 15:40 | disposition home or self-care (01) ==
LOC: ER 10:47
DX: S22.31XA Fracture of one rib, right side, initial encounter for closed fracture (principal); R10.9 Unspecified abdominal pain; X58.XXXA Exposure to other specified factors, initial encounter; I48.91 Unspecified atrial fibrillation; I50.9 Heart failure, unspecified; I25.10 Atherosclerotic heart disease of native coronary artery without angina pectoris; J44.9 Chronic obstructive pulmonary disease, unspecified; E03.9 Hypothyroidism, unspecified; I13.0 Hypertensive heart and chronic kidney disease with heart failure and stage 1 through stage 4 chronic kidney disease, or unspecified chronic kidney disease; E78.00 Pure hypercholesterolemia, unspecified; N18.3 Chronic kidney disease, stage 3 (moderate); Z88.3 Allergy status to other anti-infective agents; I25.2 Old myocardial infarction; Z95.2 Presence of prosthetic heart valve; Z95.1 Presence of aortocoronary bypass graft
CPT/HCPCS: 36415; 80053; 85025; 99284

== ENCOUNTER → 2018-09-09 | Outpatient (CLI) | payer MEDICARE ==
[2018-09-09 11:20] LABS: ANION GAP 7 (5-19); BLOOD UREA NITROGEN 23 mg/dL (7-20); CALCIUM 8.7 mg/dL (8.4-10.2); CARBON DIOXIDE 25 mmol/L (22-30); CHLORIDE 110 mmol/L (98-107); GLUCOSE 85 mg/dL (75-110); POTASSIUM 3.8 mmol/L (3.6-5.0); SODIUM 141.7 mmol/L (137-145)
== END ==
LOC: OD 10:28
PROVIDERS: ATTEND Internal Medicine Nephrology
DX: N18.9 Chronic kidney disease, unspecified (principal)
CPT/HCPCS: 36415; 80048

== ENCOUNTER 2018-10-18 21:35 | Emergency (ER) | payer MEDICARE ==
[2018-10-18 22:08] LABS: VENOUS BLOOD BASE EXCESS 0.8 mmol/L; VENOUS BLOOD HCO3 25.9 mmol/L (20-32); VENOUS BLOOD PCO2 43.2 mmHg (35-63); VENOUS BLOOD PH 7.4 (7.30-7.42)
[2018-10-18 22:10] LABS: HEMATOCRIT 34.6 % (37.9-51.0); HEMOGLOBIN 11.4 g/dL (13.5-17.0); MEAN CORPUSCULAR HEMOGLOBIN 31.2 pg (27.0-33.4); MEAN CORPUSCULAR VOLUME 95 fl (80-97); PLATELET COUNT 119 10^3/uL (150-450); RED BLOOD COUNT 3.65 10^6/uL (4.35-5.55); RED CELL DISTRIBUTION WIDTH 17.1 % (11.5-14.0); WHITE BLOOD COUNT 16.2 10^3/uL (4.0-10.5)
[2018-10-18 22:11] LABS: INTERNATIONAL RATION (INR) 1.19; PROTHROMBIN TIME 15.7 SEC (11.4-15.4)
--- NOTE | 2018-10-18 22:18 | RADIOLOGY REPORT (SQ) ---
EXAM DESCRIPTION: XR CHEST 1 VIEW COMPLETED DATE/TME: 10/18/2018 21:38 CLINICAL HISTORY: 88 years, Male, sepsis Compared to 09/04/2018. FINDINGS: The heart is mildly enlarged. Status post median sternotomy. Aortic arch is mildly calcified. No consolidations or pleural effusions. No pulmonary edema or pneumothorax. IMPRESSION: No acute disease.
[2018-10-18 22:26] LABS: ABSOLUTE LYMPHOCYTES# (MANUAL) 0.8 10^3/uL (0.5-4.7); ABSOLUTE MONOCYTES # (MANUAL) 1.3 10^3/uL (0.1-1.4); ABSOLUTE NEUTROPHILS# (MANUAL) 14.1 10^3/uL (1.7-8.2); BASOPHILS % (MANUAL) 0 % (0-2); EOSINOPHILS % (MANUAL) 0 % (0-6); LYMPHOCYTES % (MANUAL) 5 % (13-45); MONOCYTES % (MANUAL) 8 % (3-13); SEGMENTED NEUTROPHILS % (MAN) 87 % (42-78); TOTAL CELLS COUNTED 100
[2018-10-18 22:27] LABS: ALANINE AMINOTRANSFERASE 18 U/L (21-72); ALBUMIN 3.4 g/dL (3.5-5.0); ALKALINE PHOSPHATASE 93 U/L (38-126); ANION GAP 10 (5-19); ANISOCYTOSIS 1+; ASPARTATE AMINO TRANSFERASE 18 U/L (17-59); BILIRUBIN,DIRECT 0.4 mg/dL (0.0-0.4); BILIRUBIN,TOTAL 1.4 mg/dL (0.2-1.3); BLOOD UREA NITROGEN 26 mg/dL (7-20); CALCIUM 8.7 mg/dL (8.4-10.2); CARBON DIOXIDE 26 mmol/L (22-30); CHLORIDE 95 mmol/L (98-107); GLUCOSE 142 mg/dL (75-110); PLATELET COMMENT DECREASED; POIKILOCYTOSIS SLIGHT; TOTAL PROTEIN 5.7 g/dL (6.3-8.2); TOXIC GRANULATION SLIGHT
--- NOTE | 2018-10-18 23:28 | ER Document Report ---
ED General - General Chief Complaint: Weakness Stated Complaint: ALTERED MENTAL STATUS Time Seen by Provider: 10/18/18 23:23 Primary Care Provider: AZUL PAREDES MD [Primary Care Provider] - Follow up as needed Mode of Arrival: Medic Information source: Patient, Relative, Emergency Med Personnel Notes: HISTORY OF PRESENT ILLNESS: Patient is a 88-year-old male with a past medical history of several chronic health conditions including peripheral vascular disease status post femoralfemoral vascular bypass 1 month ago at [facility] who presents with fever and weakness for the past several hours. Of note, the patient's daughter at bedside reports increased drainage from her right lower abdomen surgical incision site. Location: Global Onset: Today Provocation: None Quality: Fever, weakness Radiation: None Severity: Severe Timing: Constant Known sick contacts: Recent hospitalization with extended stay in inpatient rehab Associated symptoms: Fever with chills, denies cough or congestion, no chest pain or shortness of breath, no dysuria or hematuria Recent surgery: Yes Home treatment: Tylenol REVIEW OF SYSTEMS: CONSTITUTIONAL : Positive for fevers but no chills or sweats. Denies recent illness. EENT: Denies eye, ear, throat, or mouth pain or symptoms. Denies nasal or sinus congestion. CARDIOVASCULAR: Denies chest pain. RESPIRATORY: Denies cough, cold, or chest congestion. Denies shortness of breath, difficulty breathing, or wheezing. GASTROINTESTINAL: Denies abdominal pain. Denies nausea, vomiting, or diarrhea. Denies constipation. GENITOURINARY: Denies difficulty urinating, painful urination, burning, frequency, or blood in urine. MUSCULOSKELETAL: Denies body aches. Denies neck or back pain or joint pain or swelling. SKIN: Denies rash or skin lesions. HEMATOLOGIC : Denies easy bruising or bleeding. LYMPHATIC: Denies swollen, enlarged glands. NEUROLOGICAL: Denies altered mental status or loss of consciousness. Denies headache. Denies weakness or paralysis or loss of use of either side. Denies problems with gait or speech. Denies sensory or motor loss. PSYCHIATRIC: Denies anxiety or stress or depression. All other systems reviewed and negative. PHYSICAL EXAMINATION: GENERAL: Sick-appearing, well-nourished and in moderate to severe acute distress. HEAD: Atraumatic, normocephalic. No scalp deformity, depression, or crepitance. EYES: Pupils are 2mm and equal/round/reactive to light, extraocular movements intact, sclera anicteric, conjunctiva are normal. ENT: Nares patent bilaterally, oropharynx clear without exudates or palatal petechia. Moist mucous membranes. No tonsil hypertrophy. NECK: Normal range of motion, supple without lymphadenopathy. LUNGS: Breath sounds present, equal, and clear to auscultation bilaterally. No wheezes, rales, or rhonchi. HEART: Increased rate with irregular rhythm without murmurs, rubs, or gallops. 2+ peripheral pulses. Normal capillary refill. ABDOMEN: Soft and nondistended. There are two 6-7 cm linear surgical sites in the bilateral lower quadrants. The left surgical incision site is clean/dry/intact. The right surgical incision site has induration with 3 cm border of erythema draining purulent material that is mildly tender to the touch. Normoactive bowel sounds. No guarding, no rebound. No masses appreciated. BACK: Normal contour, no midline tenderness. Rectal exam deferred. EXTREMITIES: Normal range of motion, no pitting or edema. No cyanosis. NEUROLOGICAL: No focal neurological deficits. Moves all extremities spontaneously and on command. PSYCH: Normal mood, normal affect. No suicidal thoughts/ideations. No homocidal thoughts/ideations. No hallucinations. SKIN: Warm, dry, normal turgor, no rashes or lesions noted. ASSESSMENT AND PLAN: This patient is an 88-year-old male who presents with likely sepsis from cellulitis versus postoperative infection versus intra-abdominal abscess versus pneumonia versus UTI. 1. Will obtain sepsis labs, start empiric IV fluids with antibiotics, and obtain CT scan of the abdomen/pelvis. 2. Will consider IV vasopressors if blood pressure does not improve with fluids. TRAVEL OUTSIDE OF THE [place] IN LAST 30 DAYS: No - Related Data Allergies/Adverse Reactions: clindamycin [Clindamycin] Allergy (Severe, Verified 09/04/18 11:22) Renal failure gentamicin [Gentamicin] Allergy (Severe, Verified 09/04/18 11:22) Renal failure fluticasone propionate [From Advair Diskus] Allergy (Verified 09/04/18 11:22) salmeterol xinafoate [From Advair Diskus] Allergy (Verified 09/04/18 11:22) Past Medical History - General Information source: Patient, Relative, Emergency Med Personnel - Social History Smoking Status: Never Smoker Chew tobacco use (# tins/day): No Frequency of alcohol use: None Drug Abuse: None Lives with: Family Family History: Reviewed & Not Pertinent Patient has suicidal ideation: No Patient has homicidal ideation: No - Past Medical History Cardiac Medical History: Reports: Hx Atrial Fibrillation, Hx Congestive Heart Failure - Systolic, Hx Coronary Artery Disease, Hx Heart Attack, Hx Hypercholesterolemia, Hx Hypertension, Hx Heart Murmur - Moderate aortic stenosis Pulmonary Medical History: Reports: Hx COPD, Hx Pneumonia Denies: Hx Asthma, Hx Tuberculosis EENT Medical History: Reports: None Neurological Medical History: Reports: Hx Cerebrovascular Accident. Denies: Hx Seizures Endocrine Medical History: Reports: Hx Hypothyroidism Renal/ Medical History: Reports: Hx End Stage Renal Disease - III. Denies: Hx Peritoneal Dialysis Malignancy Medical History: Reports None GI Medical History: Reports: Hx Diverticulitis. Denies: Hx Hepatitis, Hx Hiatal Hernia, Hx Ulcer Musculoskeletal Medical History: Reports None Skin Medical History: Reports None Psychiatric Medical History: Reports: None Denies: Hx Depression Traumatic Medical History: Reports: None Infectious Medical History: Reports: None. Denies: Hx Hepatitis Past Surgical History: Reports: Hx Bowel Surgery - colonoscopy 02/19; Colon resection in 1988 due to diverticulosis, Hx Cardiac Catheterization, Hx Cardiac Surgery - AV replacement, Hx Coronary Artery Bypass Graft, Hx Open Heart Surgery - CABGX2, Hx Testicular Surgery - left testicle orchiectomy., Hx Tonsillectomy. Denies: Hx Pacemaker - Immunizations Hx Diphtheria, Pertussis, Tetanus Vaccination: Yes Hx Pneumococcal Vaccination: 08/08/07 Physical Exam - Vital signs Vitals: Pulse Ox 94 10/18/18 21:39 Course - Re-evaluation Re-evalutation: 10/19/18 01:54 Chest x-ray is negative. Blood work shows elevated white blood cell count, CT scan has yet to be obtained. Patient currently has a central line that was placed in the right subclavian vein secondary to persistent hypotension. He will be started on a norepinephrine drip for blood pressure control. He has been given empiric antibiotics, will admit after CT scan has been obtained. 10/19/18 04:48 CT scan reveals large bilateral abscesses that extends from the subcutaneous surgical incisions into the bilateral femoralfemoral vascular grafts. Patient is currently on norepinephrine with improved blood pressure. We will attempt contact to [facility] to arrange transport. 10/19/18 05:02 I have spoken with Dr. Ribeiro with [facility] who has accepted the patient with accepting supervising physician as Dr. Montgomery. - Vital Signs Vital signs: Temp Pulse Resp BP Pulse Ox 100.4 F 16 73/44 L 98 10/19/18 01:51 10/19/18 01:51 10/19/18 01:51 10/19/18 01:51 - Laboratory Result Diagrams: 10/18/18 21:45 10/18/18 21:45 Laboratory results interpreted by me: 10/18/18 10/18/18 10/18/18 21:45 21:45 21:45 WBC 16.2 H RBC 3.65 L Hgb 11.4 L Hct 34.6 L RDW 17.1 H Plt Count 119 L Seg Neuts % (Manual) 87 H Lymphocytes % (Manual) 5 L Abs Neuts (Manual) 14.1 H PT 15.7 H Sodium 131.0 L Chloride 95 L BUN 26 H Creatinine 2.35 H Est GFR ( Amer) 32 L Est GFR (Non-Af Amer) 26 L Glucose 142 H Lactic Acid Total Bilirubin 1.4 H ALT 18 L Total Protein 5.7 L Albumin 3.4 L 10/18/18 10/19/18 21:45 04:00 WBC RBC Hgb Hct RDW Plt Count Seg Neuts % (Manual) Lymphocytes % (Manual) Abs Neuts (Manual) PT Sodium Chloride BUN Creatinine Est GFR ( Amer) Est GFR (Non-Af Amer) Glucose Lactic Acid 2.9 H 3.2 H Total Bilirubin ALT Total Protein Albumin - Diagnostic Test Radiology reviewed: Image reviewed, Reports reviewed - EKG Interpretation by Me Rate: Tachycardia Rhythm: A.Fib [place]/QRS: No: Right axis deviation, Left axis deviation, RBBB, LBBB, IVCD, LAHB/LAFB, LPHB/LPFB, Bifasicular block Voltage: No: Increased voltage, Consistant with LVH, Decreased voltage, Throughout, Limb leads P Waves: No: FLORENCIO, LAE, Absent, AV Dissociation, Other Heart block present: No: 1st Degree, Mobitz 1, Mobitz 2, CHB (3rd degree block) When compared to previous EKG there are: No significant change - Consults Dr. David Time consulted: 03:15 - obtain CT scan of the a/p first then call back if no surgical or concerning findings are reported on CT. Dr. Ribeiro ([place]) Time consulted: 05:06 - will accept in transfer Procedures - Central Line Right Supraclavicular Time completed: 02:25 Consent obtained: Yes Central line pre-insertion: Sterile PPE donned, Chloraprep applied, Sterile drapes applied Central line size (Fr.): 7 Central line lumen type: Triple Anesthetic type: 1% Lidocaine mL's of anesthesia: 5 Ultrasound guided: No CM at insertion site: 18 Line secured with sutures: Yes Central line post-insertion: Sutured Number of attempts: 1 Complications: Yes - Central line tracks up the right internal jugular Notes: 10/19/18 03:07 An attempt was made to remove the central line over a guidewire and attempt repositioning, which was unsuccessful. A central line was sutured back into place and is currently being used only for fluid or blood draws. Patient has a peripheral IV that is being used for norepinephrine. Critical Care Note - Critical Care Note Total time excluding time spent on procedures (mins): 120 Comments: Critical care time spent obtaining history from patient or surrogate, discussions with consultants, development of treatment plan with patient or surrogate, evaluation of patient's response to treatment, examination of patient, ordering and performing treatments and interventions, ordering and review of laboratory studies, re-evaluation of patient's condition, ordering and review of radiographic studies and review of old charts. Discharge - Discharge Clinical Impression: Intra-abdominal abscess Sepsis Qualifiers: Sepsis type: sepsis due to unspecified organism Qualified Code(s): A41.9 - Sepsis, unspecified organism Condition: Fair Disposition: [place] Referrals: AZUL PAREDES MD [Primary Care Provider] - Follow up as needed
[2018-10-19 00:42] LABS: APPEARANCE,URINE CLEAR; BILIRUBIN,URINE NEGATIVE (NEGATIVE); COLOR,URINE YELLOW; GLUCOSE, URINE NEGATIVE (NEGATIVE); KETONES,URINE NEGATIVE (NEGATIVE); LEUKOCYTE ESTERASE,URINE NEGATIVE (NEGATIVE); NITRITE,URINE NEGATIVE (NEGATIVE); PROTEIN,URINE NEGATIVE (NEGATIVE); UROBILINOGEN,URINE NEGATIVE mg/dL (<2.0)
[2018-10-19] MEDS ORDERED: NOREPINEPHRINE BITARTRATE INJ/PF 4 MG/4 ML SDV IV ONE ×2 (00:53→09:50)
[2018-10-19] MEDS ORDERED: CEFEPIME 2 GM/D5W RTU 2 GM/50 ML RTUPB IV ONE (01:55)
[2018-10-19] MEDS ORDERED: DEXTROSE 5%-WATER 250 ML with NOREPINEPHRINE BITARTRATE 4 MG IV PRN ×2 (01:55)
[2018-10-19] MEDS ORDERED: VANCOMYCIN HCL INJ 1000 MG VIAL IV ONE (01:55)
[2018-10-19] MEDS ORDERED: LIDOCAINE 1% INJ-PF (10 MG/ML) 30 ML SDV ONE (02:16)
--- NOTE | 2018-10-19 02:25 | RADIOLOGY REPORT (SQ) ---
EXAM DESCRIPTION: XR CHEST 1 VIEW COMPLETED DATE/TME: 10/19/2018 01:51 CLINICAL HISTORY: 88 years, Male, central line placement verification COMPARISON: 10/18/2018 NUMBER OF VIEWS: One TECHNIQUE: AP view of the chest LIMITATIONS: None. FINDINGS: The right subclavian line has its tip directed cranially into the internal jugular vein. The lungs are clear. The heart is enlarged. There is no pneumothorax or pleural effusion. The bones are unchanged. IMPRESSION: The right subclavian line has its tip directed cranially and should be repositioned copyright 2011 [employer]- All Rights Reserved
--- NOTE | 2018-10-19 04:07 | RADIOLOGY REPORT (SQ) ---
EXAM DESCRIPTION: CT ABDOMEN PELVIS WITHOUT IV CONTRAST COMPLETED DATE/TME: 10/19/2018 00:00 CLINICAL HISTORY: 88 years Male, abd pain Comparison:05/16/2014 Technique: No contrast. Coronal and sagittal reformat. This exam was performed according to our departmental dose-optimization program, which includes automated exposure control, adjustment of the mA and/or kV according to patient size and/or use of iterative reconstruction technique.[facility]: Dose Right [facility]: CareDose [facility]: Dose Right [facility]: Teradose 4D [facility]: Subtech LIMITATIONS: None Findings: Sternotomy. Espino catheter. Proximal aortic arterial graft. Surgical clips of the pelvis. Femoral-femoral graft anteriorly with adjacent complex fluid collections at bilateral groin measuring up to 6.3 x 8.7 x 4.8 cm on the right including moderate gas bubbles and measuring up to 6 x 8.5 x 2.7 cm on the left. Differential etiologies include abscess, complicated seroma, chronic hematoma/pseudoaneurysm. Atelectasis or scar bilateral lower lobes. Likely benign renal cyst(s), not definitively characterized. Coronary arterial calcification. Atherosclerotic vascular disease. Degenerative disc disease. Moderate bilateral inguinal fat only hernia. Gallbladder hydrops with transverse diameter 3.9 cm. Splenomegaly index of 602. Bilateral perinephric fat stranding, nonspecific. Colonic diverticulosis. Unenhanced lower thorax, abdominopelvic structures, and musculoskeleton appear otherwise grossly unremarkable. Impression: Femoral-femoral graft anteriorly with adjacent complex fluid collections at bilateral groin measuring up to 6.3 x 8.7 x 4.8 cm on the right including moderate gas bubbles and measuring up to 6 x 8.5 x 2.7 cm on the left. Differential etiologies include abscess, complicated seroma, and chronic hematoma/pseudoaneurysm.
[2018-10-19] MEDS ORDERED: VANCOMYCIN HCL INJ 1000 MG VIAL ONE ×2 (04:18→05:16)
[2018-10-19] MEDS ORDERED: VANCOMYCIN HCL INJ 500 MG VIAL ONE (04:18)
[2018-10-19] MEDS ORDERED: MORPHINE SULFATE 10 MG/ML INJ IV ONE (05:07)
--- NOTE | 2018-10-19 08:09 | EKG REPORT ---
SEVERITY:- ABNORMAL ECG - ATRIAL FIBRILLATION RIGHT AXIS DEVIATION BORDERLINE PROLONGED QT INTERVAL IVCD : Confirmed by: Rodrigue De Santiago MD 19-Oct-2018 08:08:20
[2018-10-19 10:07] VITALS: BP 117/67
== END 2018-10-19 10:07 | disposition short-term general hospital (02) ==
LOC: ER 21:35
DX: A41.9 Sepsis, unspecified organism (principal); T81.43XA Infection following a procedure, organ and space surgical site, initial encounter; K65.1 Peritoneal abscess; I73.9 Peripheral vascular disease, unspecified; R53.1 Weakness; I25.10 Atherosclerotic heart disease of native coronary artery without angina pectoris; I10 Essential (primary) hypertension; J44.9 Chronic obstructive pulmonary disease, unspecified; Z95.1 Presence of aortocoronary bypass graft; Z88.1 Allergy status to other antibiotic agents; Z88.8 Allergy status to other drugs, medicaments and biological substances
CPT/HCPCS: 93005; 99291; 99292; 90471; 96365; 96366; 96367; 96368; 36415; 87040; 87086; 82962; 85025; 85610; 80053; 81001; 82803; 83605; 71045 ×2; 74176; 93010; 36556; C1751; C1769; J3490 ×2; J7060; J3370; J0692